=== PATIENT | female | born 1965 | race African-American/Black ===

== ENCOUNTER 2020-05-14 04:17 | Emergency (ER) | payer OTHER, MEDICAID ==
[~2020-05-14] VITALS: Ht 170.2 cm; Wt 96.6 kg
[2020-05-14 05:56] LABS: Basophils # (auto) 0 10 ^3/uL (0-0.2); Basophils % (auto) 0.5 % (0.0-2.0); Eosinophils # (auto) 0 10 ^3/uL (0-0.8); Hematocrit 42.4 % (36.0-46.0); Hemoglobin 14.3 g/dL (12.2-16.2); Lymphocytes # (auto) 0.9 10 ^3/uL (0.4-5.4); Lymphocytes % (auto) 16.8 % (10.0-50.0); Mean Corpuscular Hemoglobin 29.5 pg (28.0-32.0); Mean Corpuscular Hgb Conc. 33.7 g/dL (32.0-36.0); Mean Corpuscular Volume 87.6 fL (80.0-100.0); Monocytes # (auto) 0.4 10 ^3/uL (0-1.3); Neutrophils # (auto) 3.8 10 ^3/uL (1.6-8.6); Neutrophils % (auto) 74.7 % (37.0-80.0); Nucleated Red Blood Cells % 0.2 %; Platelet Count (auto) 222 10^3/uL (140-450); Red Blood Cells 4.84 10^6/uL (4.0-5.20); Red Cell Distribution Width 14.9 % (11.8-14.3); White Blood Cell 5.1 10^3/uL (4.4-10.8)
[2020-05-14 06:09] LABS: INR 0.97 (0.9-1.15); Partial Thromboplastin Time 27.5 sec (23.64-32.05)
[2020-05-14 06:13] LABS: Urine Bacteria NONE SEEN /hpf (None Seen); Urine Blood Negative /uL (Negative); Urine Mucus FEW (None Seen); Urine WBC 1 /hpf (0 - 5)
[2020-05-14 06:17] LABS: Albumin 4.2 g/dL (3.4-5.0); Anion Gap 7 (5-15); Blood Urea Nitrogen 11 mg/dL (7-18); Calcium 9.2 mg/dL (8.5-10.1); Carbon Dioxide 26 mmol/L (21-32); Chloride 103 mmol/L (98-107); Glucose 124 mg/dL (74-106); Potassium 3.6 mmol/L (3.5-5.1); Sodium 136 mmol/L (136-145)
[2020-05-14 06:25] LABS: Alanine Aminotransferase 47 U/L (13-56); Alkaline Phosphatase 79 U/L (45-117); Aspartate Aminotransferase 28 U/L (15-37); BUN/Creatinine Ratio 12.6; Bilirubin, Total 0.5 mg/dL (0.2-1.0); GFR African American 87 mL/min; GFR Non-African American 72 mL/min; Total Protein 8.7 g/dL (6.4-8.2)
[2020-05-14] MEDS ORDERED: MORPHINE SULF INJ 2 MG/ML SYRINGE 1ML IV ONE (06:30)
[2020-05-14] MEDS ORDERED: ONDANSETRON HCL 4 MG/2 ML VIAL IV ONE (06:30)
[2020-05-14 06:39] VITALS: BP 147/90
[2020-05-14] MEDS ORDERED: SODIUM CHLORIDE 0.9% 1,000 ML IV ONE (06:42)
[2020-05-14] MEDS ORDERED: PANTOPRAZOLE 40 MG/10 ML VIAL INJ IV ONE (06:45)
== END 2020-05-14 08:21 | disposition home or self-care (01) ==
LOC: ER 04:23
DX: K29.70 Gastritis, unspecified, without bleeding (principal); R42 Dizziness and giddiness; M54.2 Cervicalgia; I10 Essential (primary) hypertension; Z88.1 Allergy status to other antibiotic agents
CPT/HCPCS: 36415; 70450; 71045; 80053; 81001; 84484; 85025; 85610; 85730; 93005; 96361; 96374; 96375; 99285; C9113; J2270; J2405; J7030

== ENCOUNTER 2021-03-09 14:30 | Emergency (ER) | payer OTHER, MEDICAID ==
[~2021-03-09] VITALS: Ht 167.6 cm; Wt 92.5 kg
[2021-03-09 14:33] VITALS: BP 138/81
== END 2021-03-09 15:34 | disposition left against medical advice (07) ==
LOC: ER 14:33
DX: K62.89 Other specified diseases of anus and rectum (principal); Z53.21 Procedure and treatment not carried out due to patient leaving prior to being seen by health care provider

== ENCOUNTER 2022-07-11 08:15 | Emergency (ER) | payer OTHER, MEDICAID ==
[~2022-07-11] VITALS: Ht 167.6 cm; Wt 95.5 kg
[2022-07-11] MEDS ORDERED: KETOROLAC TROMETH 60MG/2ML VIAL IM ONE (09:15)
[2022-07-11 09:35] LABS: Basophils # (auto) 0.1 10 ^3/uL (0-0.2); Basophils % (auto) 1.2 % (0.0-2.0); Eosinophils # (auto) 0.1 10 ^3/uL (0-0.8); Eosinophils % (auto) 2.3 % (0.0-7.0); Hematocrit 37.6 % (36.0-46.0); Hemoglobin 12.6 g/dL (12.2-16.2); Lymphocytes # (auto) 1.2 10 ^3/uL (0.4-5.4); Mean Corpuscular Hemoglobin 29.4 pg (28.0-32.0); Mean Corpuscular Hgb Conc. 33.4 g/dL (32.0-36.0); Mean Corpuscular Volume 88.2 fL (80.0-100.0); Monocytes # (auto) 0.4 10 ^3/uL (0-1.3); Monocytes % (auto) 8.1 % (0.0-12.0); Neutrophils # (auto) 2.9 10 ^3/uL (1.6-8.6); Neutrophils % (auto) 62.4 % (37.0-80.0); Nucleated Red Blood Cells % 0.1 %; Red Blood Cells 4.27 10^6/uL (4.0-5.20); Red Cell Distribution Width 14.1 % (11.8-14.3); White Blood Cell 4.6 10^3/uL (4.4-10.8)
[2022-07-11 10:02] LABS: Albumin 3.9 g/dL (3.4-5.0); Calcium 9.2 mg/dL (8.5-10.1); Potassium 3.6 mmol/L (3.5-5.1)
[2022-07-11 10:13] LABS: BUN/Creatinine Ratio 17.9; Bilirubin, Total 0.4 mg/dL (0.2-1.0); Total Protein 7.7 g/dL (6.4-8.2)
[2022-07-11 10:27] VITALS: BP 150/88
[2022-07-11] MEDS ORDERED: IBUP800T27 PO (10:33)
[2022-07-11] MEDS ORDERED: METH750T22 PO (10:33)
== END 2022-07-11 10:42 | disposition home or self-care (01) ==
LOC: ER 08:15
DX: S29.011A Strain of muscle and tendon of front wall of thorax, initial encounter (principal); R07.81 Pleurodynia; I10 Essential (primary) hypertension; E03.9 Hypothyroidism, unspecified; Z90.89 Acquired absence of other organs; Z79.1 Long term (current) use of non-steroidal anti-inflammatories (NSAID); Z79.899 Other long term (current) drug therapy; Z88.1 Allergy status to other antibiotic agents; X50.1XXA Overexertion from prolonged static or awkward postures, initial encounter; Y93.89 Activity, other specified; Y92.89 Other specified places as the place of occurrence of the external cause; Y99.8 Other external cause status
CPT/HCPCS: 36415; 76705; 80053; 83690; 85025; 96372; 99284; J1885